=== PATIENT | female | born 1985 | race American Indian/Alaskan Native ===

== ENCOUNTER 2016-06-01 08:35 | Emergency (ER) | payer OTHER, MEDICAID ==
--- NOTE | 2016-06-01 11:36 | Emergency Department Report ---
- General Chief Complaint: Upper Respiratory Infection Stated Complaint: COUGH/SOB/HEADACHE/CONGESTION Time Seen by Provider: 06/01/16 11:10 Source: patient Mode of arrival: Ambulatory Limitations: No Limitations - History of Present Illness -: Gradual Context: sick contacts Associated Symptoms: fever, chills, cough - Related Data Previous Rx's Medication Instructions Recorded Last Taken Type HYDROcodone/APAP 7.5-325 [[place] 1 each PO Q8HR PRN #10 tablet 08/01/15 Unknown Rx 7.5/325] ALBUTEROL Inhaler [ProAir HFA 2 puff IH QID PRN #1 inhalation 06/01/16 Unknown Rx Inhaler] Azithromycin [Zithromax TAB] 250 mg PO QDAY #6 tablet 06/01/16 Unknown Rx Fluconazole [Diflucan TAB] 150 mg PO ONCE #1 tablet 06/01/16 Unknown Rx methylPREDNISolone [Medrol] 4 mg PO QAM #1 tab.ds.pk 06/01/16 Unknown Rx Allergies Allergy/AdvReac Type Severity Reaction Status Date / Time No Known Allergies Allergy Verified 08/01/15 23:13 ED Review of Systems ROS: Stated complaint: COUGH/SOB/HEADACHE/CONGESTION Other details as noted in HPI Eyes: denies: eye pain, eye discharge, vision change ENT: denies: ear pain, throat pain Gastrointestinal: abdominal pain. denies: nausea, vomiting Musculoskeletal: myalgia ED Past Medical Hx - Past Medical History Previous Medical History?: Yes Additional medical history: Vaginal delivery 2003 - Surgical History Past Surgical History?: No - Social History Smoking Status: Former Smoker Substance Use Type: Alcohol, Non Opiate Pain, Other - Medications Home Medications: Home Medications Medication Instructions Recorded Confirmed Last Taken Type HYDROcodone/APAP 7.5-325 [[place] 1 each PO Q8HR PRN #10 tablet 08/01/15 Unknown Rx 7.5/325] ALBUTEROL Inhaler [ProAir HFA 2 puff IH QID PRN #1 inhalation 06/01/16 Unknown Rx Inhaler] Azithromycin [Zithromax TAB] 250 mg PO QDAY #6 tablet 06/01/16 Unknown Rx Fluconazole [Diflucan TAB] 150 mg PO ONCE #1 tablet 06/01/16 Unknown Rx methylPREDNISolone [Medrol] 4 mg PO QAM #1 tab.ds.pk 06/01/16 Unknown Rx ED Physical Exam - General Limitations: No Limitations General appearance: alert, in no apparent distress - Head Head exam: Present: atraumatic, normocephalic - Eye Eye exam: Present: normal appearance - ENT ENT exam: Present: mucous membranes moist - Neck Neck exam: Present: normal inspection - Respiratory Respiratory exam: Present: normal lung sounds bilaterally. Absent: respiratory distress - Neurological Exam Neurological exam: Present: alert, oriented X3 ED Course Vital Signs 06/01/16 06/01/16 08:53 12:39 Temperature 98.3 F 98.2 F Pulse Rate 80 85 Respiratory 20 20 Rate Blood Pressure 117/76 Blood Pressure 120/80 [Left] O2 Sat by Pulse 98 99 Oximetry Critical care attestation.: If time is entered above; I have spent that time in minutes in the direct care of this critically ill patient, excluding procedure time. ED Disposition Clinical Impression: URI (upper respiratory infection), Yeast infection Disposition: DISCHARGED TO HOME OR SELFCARE Is pt being admited?: No Condition: Stable Instructions: Upper Respiratory Infection (ED) Prescriptions: ALBUTEROL Inhaler [ProAir HFA Inhaler] 2 puff IH QID PRN #1 inhalation PRN Reason: Shortness Of Breath Azithromycin [Zithromax TAB] 250 mg PO QDAY #6 tablet Fluconazole [Diflucan TAB] 150 mg PO ONCE #1 tablet methylPREDNISolone [Medrol] 4 mg PO QAM #1 tab.ds.pk Referrals: PRIMARY CARE,MD [Primary Care Provider] - 3-5 Days Forms: Work/School Release Form(ED)
--- NOTE | 2016-06-01 11:45 | XRay Report ---
ROUTINE CHEST, TWO VIEWS: PA and lateral views demonstrate the heart and mediastinal contour to be of normal size and shape. The lungs are clear and fully expanded and the soft tissues and bony structures are normal. IMPRESSION: Normal study.
[2016-06-01 12:40] VITALS: BP 120/80
[2016-06-01 13:07] LABS: Bilirubin,Urine NEG (Negative); Blood,Urine LG (Negative); Ketones,Urine NEG (Negative); Leukocyte Esterase,Urine NEG (Negative); Nitrite,Urine POS (Negative); RBC,Urine > 182.0 /HPF (0.0-6.0); Urobilinogen,Urine < 2.0 mg/dL (<2.0)
== END 2016-06-01 14:28 | disposition home or self-care (01) ==
LOC: ED 08:35
DX: J06.9 Acute upper respiratory infection, unspecified (principal); B37.9 Candidiasis, unspecified; Z87.891 Personal history of nicotine dependence
CPT/HCPCS: 71020; 81001; 81025